=== PATIENT | female | born 1965 | race African-American/Black ===

== ENCOUNTER 2018-02-04 13:43 | Emergency (ER) | payer OTHER ==
[~2018-02-04] VITALS: Ht 160 cm; Wt 82.0 kg
[2018-02-04 14:03] VITALS: BP 118/77; PULSE 90; RESP 16; TEMP 98.3; O2SAT 98
--- NOTE | 2018-02-04 14:55 | PD ---
HPI Chief Complaint: ENT Complaint Time Seen by Provider: 14:55 Travel History International Travel<30 days: No Contact w/Intl Traveler<30days: No Traveled to known affect area: No History of Present Illness HPI 53-year-old female came to the emergency room with history of frontal headache and facial pain for past 3 days. She is also getting greenish discharge from her nose. Patient has history of frequent sinusitis and she thinks that she may be getting another one. She is also getting some chills every now and then for past 3 days. Patient is not a smoker. Pain does not radiate anywhere else. Vital signs were stable. Patient does not have a primary care physician and hence came here to be checked. When I entered the room she was sitting and checking her smart phone and did not appear to be in any distress. Pain is dull in quality with occasional throbbing. PFSH Past Medical History Narrative Medical List of her past medical, surgical, social and family history is reviewed from the nursing note Medical History: Denies Significant Hx ?: Not LMP: MENOPAUSAL Past Surgical History Section: Yes Gynecologic Surgery: Yes Tonsillectomy: Yes Social History Alcohol Use: Yes (socially) Tobacco Use: No Substance Use: No Allergies-Medications (Allergen,Severity, Reaction): Coded Allergies: No Known Allergies (Unverified , 02/04/18) Comments List of her allergies reviewed from the nursing note Reported Meds & Prescriptions Reported Meds & Active Scripts Active Augmentin (Amoxicillin-Clavulanate) 500-125 mg Tab 500 Mg PO BID 10 Days Narrative Medication List of her home medications reviewed from the nursing note Review of Systems Except as stated in HPI: all other systems reviewed are Neg HENT: Positive: Headaches, Rhinorrhea Physical Exam Narrative GENERAL: Awake, alert, no obvious distress SKIN: Focused skin assessment warm/dry. HEAD: Atraumatic. Normocephalic. EYES: Pupils equal and round. No scleral icterus. No injection or drainage. ENT: No nasal bleeding or discharge. Mucous membranes pink and moist. Tenderness over the frontal and ethmoid sinus areas. No swelling. The nasal turbinates were swollen. NECK: Trachea midline. No JVD. CARDIOVASCULAR: Regular rate and rhythm. No murmur appreciated. RESPIRATORY: No accessory muscle use. Clear to auscultation. Breath sounds equal bilaterally. GASTROINTESTINAL: Abdomen soft, non-tender, nondistended. Hepatic and splenic margins not palpable. MUSCULOSKELETAL: No obvious deformities. No clubbing. No cyanosis. No edema. NEUROLOGICAL: Awake and alert. No obvious cranial nerve deficits. Motor grossly within normal limits. Normal speech. PSYCHIATRIC: Appropriate mood and affect; insight and judgment normal. Data Data Last Documented VS Vital Signs Date Time Temp Pulse Resp B/P (MAP) Pulse Ox O2 Delivery O2 Flow Rate FiO2 02/04/18 14:03 98.3 90 16 118/77 (91) 98 Orders Orders Ed Discharge Order (02/04/18 15:42) MDM Medical Decision Making Medical Screen Exam Complete: Yes Emergency Medical Condition: Yes Medical Record Reviewed: Yes Differential Diagnosis Sinusitis, sinus headache Narrative Course 3:48 PM patient will be discharged home on Augmentin prescription. I have given her the address of [facility] to follow-up. Procedures EKG Prior to Arrival: No Diagnosis Primary Impression: Sinusitis Qualified Codes: J01.11 - Acute recurrent frontal sinusitis Additional Impression: Sinus headache Referrals: [facility] Additional Instructions: Take the medication as per prescription direction. Return to the ER if condition worsens or any other new concerns. Otherwise follow-up with your primary care or [facility] whose address has been provided to you on this discharge instruction. Med/Other Pt SpecificInfo: Prescription(s) given Scripts Amoxicillin-Clavulanate (Augmentin) 500-125 mg Tab 500 MG PO BID for Infection for 10 Days, TAB 0 Refills Prov: Adan Chavira MD 02/04/18 Disposition: 01 DISCHARGE HOME Condition: Stable Adan Chavira MD Feb 04, 2018 14:55
[2018-02-04] MEDS ORDERED: AUGM500T7 PO (15:45)
== END 2018-02-04 16:11 | disposition home or self-care (01) ==
LOC: NEPD 13:43
DX: J32.9 Chronic sinusitis, unspecified (principal); R51 Headache
CPT/HCPCS: 99283